=== PATIENT | female | born 1945 | race Caucasian/White ===

== ENCOUNTER 2021-05-09 09:48 | Emergency (ER) | payer MEDICARE ==
[~2021-05-09] VITALS: Ht 154.9 cm; Wt 62.3 kg
[~2021-05-09 09:48] MED LIST: NO HOME MEDS
[2021-05-09 10:19] LABS: BASOPHILS # (AUTO) 0.1 X10'3 (0-0.2); BASOPHILS % (AUTO) 0.7 % (0-1); EOSINOPHILS # (AUTO) 0.1 X10'3 (0-0.9); EOSINOPHILS % (AUTO) 0.7 % (0-6); HEMATOCRIT 39.1 % (35.0-45.0); LYMPHOCYTES # (AUTO) 2.1 X10'3 (1.1-4.8); LYMPHOCYTES % (AUTO) 24.7 % (21-51); MEAN CORPUSCULAR HEMOGLOBIN 29.8 PG (27.0-31.0); MEAN CORPUSCULAR HGB CONC 33.3 g/dL (33.0-36.5); MEAN CORPUSCULAR VOLUME 89.4 FL (78-98); MEAN PLATELET VOLUME 7.8 FL (7.4-10.4); MONOCYTES # (AUTO) 0.8 X10'3 (0-0.9); NEUTROPHILS # (AUTO) 5.5 X10'3 (1.8-7.7); NEUTROPHILS % (AUTO) 64.9 % (42-75); PLATELET COUNT 387 X10'3 (140-440); RED BLOOD COUNT 4.37 X10'6 (4.20-5.60); RED CELL DISTRIBUTION WIDTH 13.9 % (11.5-14.5); WHITE BLOOD COUNT 8.5 X10'3 (4.5-11.0)
[2021-05-09 10:40] LABS: ALANINE AMINOTRANSFERASE 23 U/L (12-78); ALBUMIN 3.7 G/DL (3.4-5.0); ALKALINE PHOSPHATASE 80 IU/L (46-116); ANION GAP 8 (8-16); ASPARTATE AMINO TRANSFERASE 16 U/L (10-37); BILIRUBIN,TOTAL 0.3 MG/DL (0.1-1.0); BLOOD UREA NITROGEN 22 MG/DL (7-18); BUN/CREATININE RATIO 36.7 (6.6-38.0); CALCIUM 8.8 MG/DL (8.5-10.1); CHLORIDE 105 MMOL/L (99-107); GLUCOSE 104 MG/DL (70-104); SODIUM 141 MMOL/L (135-145); TOTAL CARBON DIOXIDE 28.2 MMOL/L (24-32); TOTAL PROTEIN 7.4 G/DL (6.4-8.2); eGFR > 90 ML/MIN
[2021-05-09] MEDS ORDERED: dexamethasone sod phosphate 10mg/ml inj PO STA (11:01)
[2021-05-09] MEDS ORDERED: meclizine 12.5mg tablet PO ONE (11:05)
[2021-05-09] MEDS ORDERED: metoclopramide 10mg tablet PO ONE (11:05)
[2021-05-09 12:35] VITALS: BP 154/69
--- NOTE | 2021-05-09 12:35 | NUR ---
Pt given and understands d/c instructions. Ambulatory with a steady gait.
== END 2021-05-09 12:35 | disposition home or self-care (01) ==
LOC: ER 09:49
DX: R42 Dizziness and giddiness (principal); K21.9 Gastro-esophageal reflux disease without esophagitis; Z87.442 Personal history of urinary calculi; Z72.89 Other problems related to lifestyle
CPT/HCPCS: 36415; 71045; 80053; 83880; 84484; 85025; 93005; 99285; J1100; J8597; 99284